=== PATIENT | female | born 1985 | race African-American/Black ===

== ENCOUNTER 2017-08-05 15:18 | Emergency (ER) | payer SELFPAY ==
[2017-08-05 15:23] VITALS: BP 121/72; PULSE 73; TEMP 98.4; BMI 26.6
--- NOTE | 2017-08-05 15:34 | PDOC ---
Rapid Medical Evaluation Chief Complaint: Urinary Problem Medical Evaluation: Allergies Allergy/AdvReac Type Severity Reaction Status Date / Time shellfish derived Allergy Swelling Verified 08/05/17 15:20 Vital Signs Temp Pulse Resp BP Pulse Ox 98.4 F 73 18 121/72 100 08/05/17 15:21 08/05/17 15:21 08/05/17 15:21 08/05/17 15:21 08/05/17 15:21 08/05/17 15:27 The patient presents with a chief complaint of: [Urinary frequeancy and pain, History of UTI] I have performed a brief in-person evaluation of this patient. Pertinent physical exam findings: vss, [Lungs clear, HRR, Abdomenis soft, nontender] I have ordered the following: [UA, UC, Urine ] The patient will proceed to the ED for further evaluation. Discharge Disposition - Diagnosis Urinary frequency - Referrals - Patient Instructions - Post Discharge Activity
[2017-08-05 15:38] LABS: HCG,QUALITATIVE URINE NEGATIVE
[2017-08-05 15:39] LABS: URINE APPEARANCE SLCLOUDY; URINE BILIRUBIN NEGATIVE (NEGATIVE); URINE BLOOD NEGATIVE (NEGATIVE); URINE COLOR LTYELLOW; URINE GLUCOSE (UA) NEGATIVE (NEGATIVE); URINE KETONE NEGATIVE (NEGATIVE); URINE NITRITE NEGATIVE (NEGATIVE); URINE PROTEIN NEGATIVE (NEGATIVE); URINE UROBILINOGEN NEGATIVE mg/dL (0.2-1.0)
[2017-08-05 15:40] LABS: URINE LEUK ESTERASE 3+ (NEGATIVE)
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
[2017-08-05 18:52] LABS: EPI CELLS RARE /HPF (FEW); URINE MUCUS RARE
== END 2017-08-05 15:59 | disposition home or self-care (01) ==
LOC: JERFT 15:18
DX: N30.00 Acute cystitis without hematuria (principal)
CPT/HCPCS: 81003; 81015; 84703; 87086; 99281-25

== ENCOUNTER 2019-05-14 21:46 | Emergency (ER) | payer OTHER ==
[2019-05-14 22:04] VITALS: TEMP 98.6; BMI 28.8
--- NOTE | 2019-05-14 22:15 | PDOC ---
Attending Attestation - Resident Resident Name: HoodAhmet - ED Attending Attestation I have performed the following: I have examined & evaluated the patient, The case was reviewed & discussed with the resident, I agree w/resident's findings & plan, Exceptions are as noted - HPI HPI: 05/14/19 22:44 33y F no pmhx presents with nck/back pain. Pt was with a patint earlier this evening who was at risk of falling when resisting aginst some sort of lift. She was holding [facility] to [facility] and the lift from falling and pt was fighting against it. after the episode the pt felt aching pain in the upper shoulers b/l and now in the right upper/lower back. pt jessica any numbnes/tingling/ewakness, urinary or bowel incontinence. No prior hitsory of injuries in the past. Pt had not aken any meds prior to arrival Physical Exam: GENERAL: The patient is awake, alert, and fully oriented, Nontoxic - in no acute distress. NECK: Normal range of motion, supple, no focal midline cervical thoracic or lumbar tenderness. BACK: Mild tenderness in the trapezius bilaterally, and in the left lumbar paraspinal region NEUROLOGICAL: No facial assymetry, Normal speech, normal gait Suspect the patient's symptoms are secondary to muscle pain/strain Will give Motrin, Flexeril with discharge PMD follow-up No neuro signs or symptoms to suggest radiculopathy - Physicial Exam PE: 05/14/19 22:48 see above - Medical Decision Making 05/14/19 22:48 see above
[2019-05-14] MEDS ORDERED: IBUPROFEN 600 MG TABLET (FP) PO ONE ×2 (22:19→22:26)
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
[2019-05-14 23:47] VITALS: BP 116/75; PULSE 76
== END 2019-05-14 23:30 | disposition home or self-care (01) ==
LOC: JER 21:46
DX: S46.811A Strain of other muscles, fascia and tendons at shoulder and upper arm level, right arm, initial encounter (principal); M62.838 Other muscle spasm; X50.0XXA Overexertion from strenuous movement or load, initial encounter; Y93.F2 Activity, caregiving, lifting; Y92.128 Other place in nursing home as the place of occurrence of the external cause; Y99.0 Civilian activity done for income or pay; Z91.013 Allergy to seafood
CPT/HCPCS: 99282-25